=== PATIENT | male | born 1990 | race Caucasian/White ===

== ENCOUNTER 2024-02-10 13:35 | Emergency (ER) | payer SELFPAY ==
--- NOTE | 2024-02-10 13:54 | ED_ITS ---
Discharge Plan Disposition Patient Disposition: Home, Self-Care Condition: Good Prescriptions Prescriptions: New cyclobenzaprine 10 mg Tablet 10 mg PO BID PRN (Reason: Muscle Spasm) Qty: 20 0RF methylprednisolone 4 mg Tablets,Dose Pack 4 mg PO DIRECTED 6 Days Qty: 21 0RF Rx Instructions: Take 1 pack as directed for 6 days Referrals Follow up/Referrals: Ramon Cornejo MD [Primary Care Provider] - See instructions Activity Restrictions/Add. Instructions Additional Instructions/Restrictions: Go home and rest. It would be best if you rested tomorrow too. No heavy lifting. No twisting. Take the oral medications as directed. The muscle relaxer (cyclobenzaprine--Flexeril) will make you drowsy, so don't drive or operate heavy machinery after taking it. Don't start the oral steroids (medrol dose pack) until tomorrow, since you had the shots in here today. Follow up with your regular doctor. GO TO THE ER FOR ANY WORSENING SYMPTOMS OR CONCERN, ESPECIALLY BOWEL OR BLADDER ISSUES, SADDLE AREA NUMBNESS, FEVER, ETC Clinical Impressions Clinical Impression: Thoracic back pain, Pulled muscle Discharge ED Provider: Javier Rush [facility] General Stated complaint: back pain Time Seen by Provider: 02/10/24 13:54 History of Present Illness Provider Complaint: He states that for the past 3 days he has had right sided upper back pain. His pain started after he moved some heavy furniture. He denies any shortness of breath or cough. Related Data Previous Rx's Medication Instructions Recorded cyclobenzaprine 10 mg tablet 10 mg PO BID PRN Muscle Spasm #20 02/10/24 tabs methylprednisolone 4 mg tablets in 4 mg PO DIRECTED 6 days #21 tabs 02/10/24 a dose pack Allergies Allergy/AdvReac Type Severity Reaction Status Date / Time azithromycin Allergy Verified 04/14/18 18:17 erythromycin base Allergy Verified 02/10/24 14:06 [facility] Disclaimer: The information contained in this section may have been updated after the patient was seen, as this information can be updated by other users. Medical History (Updated 02/10/24 @ 14:55 by Javier Rush APRN) Asthma Social History Smoking Status: Current every day smoker tobacco type: cigarettes alcohol intake: never current occupational status: employed Travel in the last 8 weeks: None ROS Obtained: Yes All systems reviewed & no additional complaints except as documented Constitutional Constitutional: Denies chills and Denies fever(s) Eyes Eyes: Denies eye discharge ENT Ears, Nose, Mouth, and Throat: Denies dizziness, Denies otalgia, Denies neck pain and Denies sore throat Cardiovascular Cardiovascular: Denies chest pain Respiratory Respiratory: Denies shortness of breath, Denies chest congestion, Denies cough, Denies stridor and Denies wheezing Gastrointestinal Gastrointestingal: Denies nausea or vomiting Musculoskeletal Musculoskeletal: Reports system reviewed and no additional complaints, except as documented, Reports as per HPI, Reports back pain and Denies neck pain Integumentary/Breasts Skin/Breast: Denies rash Neurologic Neurologic: Denies dizziness and Denies paresthesias Allergic/Immunologic Allergic/Immunologic: Denies wheezing Physical Exam General General appearance: alert and in no apparent distress Head Head exam: atraumatic, normocephalic and normal inspection Eye Eye exam: Present normal appearance, PERRL and EOMI ENT ENT exam: Present normal exam, normal oropharynx, mucous membranes moist, TM's normal bilaterally and normal external ear exam Neck Neck exam: Present normal inspection, full ROM and trachea midline; Absent meningismus or lymphadenopathy Chest Chest inspection: Present normal inspection and symmetric chest wall rise; Absent tenderness Respiratory Respiratory exam: Present normal lung sounds bilaterally; Absent respiratory distress Cardiovascular Cardiovascular exam: Present regular rate and normal rhythm; Absent JVD Abdominal Exam Abdominal exam: Present soft and normal bowel sounds; Absent distention, tenderness or guarding Extremities Exam Extremities exam: Present normal inspection, full ROM and normal capillary refill; Absent calf tenderness Back Exam Back exam: Present normal inspection; Absent tenderness Neurological Exam Neurological exam: Present alert, oriented X3, CN II-XII intact, normal gait and reflexes normal; Absent motor sensory deficit Expanded Neurological Exam Speech: Present fluid speech Cranial nerves: Normal: EOM function (II, III, IV, ), facial sensation (V), facial palsy (VII), gag reflex (IX), spinal accessory function (XI) and tongue deviation (XII) Cerebellar function: normal gait Motor strength - LUE: 5/5 Motor strength - RUE: 5/5 Motor strength - LLE: 5/5 Motor strength - RLE: 5/5 Upper motor neuron exam: Normal: shil[place] neglect and sensory extinction Sensory exam upper extremity: Normal: light touch and 2 point discrimination Sensory exam lower extremity: Normal: light touch and 2 point discrimination DTR: 2+: biceps (L), biceps (R), patellar (L), patellar (R), Achilles tendon (L) and Achilles tendon (R) Spinal cord function: Absent saddle anesthesia Psychiatric Psychiatric exam: Present normal affect and normal mood Skin Skin exam: Present warm, dry, intact and normal color Lymphatic Lymphatic Findings: no adenopathy Medical Decision Making Medical Records Medical records reviewed: No I reviewed the patient's medical records. Edd Inquiry Pt receiving controlled substance: No
[2024-02-10 14:04] VITALS: BP 124/67; PULSE 87; RESP 17; TEMP 36.7; O2SAT 97; BMI 27.3
[2024-02-10] MEDS: KETOROLAC 60MG/2ML VIAL 60 MG IM (14:37)
[2024-02-10] MEDS: DEXAMETHASONE 4MG/ML 1ML VIAL 8 MG IM (14:37)
[2024-02-10 14:50] VITALS: BP 124/67; PULSE 87; RESP 17; TEMP 36.7; O2SAT 97
== END 2024-02-10 14:58 | disposition home or self-care (01) ==
PROVIDERS: Emergency Provider Nurse Practitioner Family; PCP Family Medicine
DX: S29.012A Strain of muscle and tendon of back wall of thorax, initial encounter (principal); M54.6 Pain in thoracic spine; X50.0XXA Overexertion from strenuous movement or load, initial encounter; F17.210 Nicotine dependence, cigarettes, uncomplicated
CPT/HCPCS: 96372; 99204; 99212; 99214; G0463; J1100; J1885

== ENCOUNTER 2024-05-18 13:16 | Emergency (ER) | payer SELFPAY ==
--- NOTE | 2024-05-18 13:31 | XR_ITS ---
FINAL REPORT CLINICAL HISTORY: fall FINDINGS: Left hand Three views were obtained. There is a comminuted fracture at the base of the 5th metacarpal extending into the carpometacarpal joint. There is a tiny chip fracture along the medial margin of the hamate. There is mild deformity of the 4th distal phalanx tuft presumably related to old healed fracture. IMPRESSION: Fractures as above. Reviewed, Interpreted and Dictated by Ramon Romero MD Transcribed by Ashleigh Gil Authenticated and [facility]
--- NOTE | 2024-05-18 13:31 | XR_ITS ---
FINAL REPORT CLINICAL HISTORY: fall FINDINGS: Left wrist Three views were obtained. There is a comminuted fracture at the base of the 5th metacarpal extending into the carpometacarpal joint. There is a tiny chip fracture along the medial margin of the hamate. IMPRESSION: Fractures as above. Reviewed, Interpreted and Dictated by Ramon Romero MD Transcribed by Ashleigh Gil Authenticated and . [facility]
[2024-05-18 13:34] VITALS: BP 143/67; PULSE 87; RESP 20; TEMP 36.8; O2SAT 100; BMI 25.8
--- NOTE | 2024-05-18 13:50 | EXP.UTC ---
Discharge Plan Disposition Patient Disposition: Home, Self-Care Condition: Good Prescriptions Prescriptions: New ibuprofen [IBU] 800 mg tablet 800 mg PO Q8HP PRN (Reason: Moderate Pain) Qty: 30 0RF Referrals Follow up/Referrals: Ramon Cornejo MD [Primary Care Provider] - See instructions Carlton Sparrow DO [Staff Physician] - See instructions Activity Restrictions/Add. Instructions Additional Instructions/Restrictions: Rest the extremity, apply ice for 15 minutes as tolerated three or four times per day, Wear the sandra wrap for compression, Elevate the extremity as tolerated while you are resting. Take ibuprofen for pain. I sent in a prescription to your pharmacy. Follow up with Dr. Sparrow (orthopedics). I put in a referral but you need to call his office and schedule an appointment. His office phone number will be on this paperwork. Follow up with your regular doctor. GO TO THE ER FOR ANY WORSENING SYMPTOMS Clinical Impressions Clinical Impression: Fracture of fifth metacarpal bone of left hand Instructions Patient Instructions: DI for a Hand Fracture, Hand Fracture Print Language Print Language: Citizen Of [place] Discharge ED Provider: Javier Rush [facility] HPI General Stated complaint: AO 05/18/24 @ 12:00, fell, inj to left hand Mode of Arrival: Ambulatory Source of Information: Patient Time Seen by Provider: 05/18/24 13:50 Description of Symptoms (Recalled from Triage Doc. 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 Related Data Previous Rx's ?Medication ?Instructions ?Recorded ibuprofen 800 mg tablet (IBU) 800 mg PO Q8HP PRN Moderate Pain 05/18/24 #30 tabs Allergies Allergy/AdvReac Type Severity Reaction Status Date / Time azithromycin Allergy Verified 04/14/18 18:17 erythromycin base Allergy Verified 02/10/24 14:06 Worker's Comp Is this a Worker's Comp case?: No [facility] Disclaimer: The information contained in this section may have been updated after the patient was seen, as this information can be updated by other users. Medical History (Updated 05/18/24 @ 14:38 by Javier Rush APRN) Asthma Social History (Updated 02/11/24 @ 12:17 by Javier Rush APRN) Smoking Status: Current every day smoker tobacco type: cigarettes alcohol intake: never current occupational status: employed Travel in the last 8 weeks: None ROS Obtained: Yes All systems reviewed & no additional complaints except as documented Constitutional Constitutional: Denies chills and Denies fever(s) Eyes Eyes: Denies eye discharge ENT Ears, Nose, Mouth, and Throat: Denies dizziness, Denies otalgia and Denies sore throat Cardiovascular Cardiovascular: Denies chest pain Respiratory Respiratory: Denies shortness of breath, Denies chest congestion, Denies cough, Denies stridor and Denies wheezing Gastrointestinal Gastrointestingal: Denies nausea or vomiting Musculoskeletal Musculoskeletal: Reports as per HPI, Denies numbness and Denies tingling Integumentary/Breasts Skin/Breast: Denies redness, Denies rash and Denies wounds Neurologic Neurologic: Denies dizziness, Denies numbness, Denies paresthesias, Denies radicular pain and Denies tingling Allergic/Immunologic Allergic/Immunologic: Denies wheezing Physical Exam General General appearance: alert and in no apparent distress Head Head exam: atraumatic, normocephalic and normal inspection Eye Eye exam: Present normal appearance, PERRL and EOMI ENT ENT exam: Present normal exam, normal oropharynx, mucous membranes moist, TM's normal bilaterally and normal external ear exam Neck Neck exam: Present normal inspection, full ROM and trachea midline; Absent meningismus or lymphadenopathy Chest Chest inspection: Present normal inspection and symmetric chest wall rise; Absent tenderness Respiratory Respiratory exam: Present normal lung sounds bilaterally; Absent respiratory distress Cardiovascular Cardiovascular exam: Present regular rate and normal rhythm; Absent JVD Abdominal Exam Abdominal exam: Present soft and normal bowel sounds; Absent distention, tenderness or guarding Extremities Exam Extremities exam: Present normal capillary refill; Absent calf tenderness Expanded Upper Extremity Exam Left: Elbow exam: Present normal inspection and full ROM; Absent tenderness, pain w/ pronation/supination or tenderness over radial head Forearm/Wrist exam: Present normal inspection and full ROM; Absent tenderness, swelling, abrasion, laceration, ecchymosis, deformity, crepitus, dislocation, erythema, tenderness over anatomical snuff box or pain with axial thumb loading Hand exam: Present tenderness and swelling; Absent full ROM, abrasion, laceration, skin avulsion, ecchymosis, deformity, crepitus, dislocation, erythema, amputation, nail avulsion or subungual hematoma Neuromotor exam: Normal wrist extension, thumb opposition, thumb IP flexion, thumb adduction and fingers 2-5 abduction Neurosensory exam: Normal radial nerve, ulnar nerve and median nerve Vascular exam: Normal capillary refill, radial pulse and ulnar pulse Back Exam Back exam: Present normal inspection; Absent tenderness Neurological Exam Neurological exam: Present alert and oriented X3 Psychiatric Psychiatric exam: Present normal affect and normal mood Skin Skin exam: Present warm, dry, intact and normal color Lymphatic Lymphatic Findings: no adenopathy Medical Decision Making Medical Records Medical records reviewed: No I reviewed the patient's medical records. Screening: Per USPSTF and CDC recommendations, given the prevalence of disease in our region, it is our hospital?s policy to screen for HIV and viral Hepatitis for all patients aged 18 and over and those with ongoing risk factors. Edd Inquiry Pt receiving controlled substance: No Vital Signs: 05/18/24 13:34 Temperature 98.3 F Temperature Source Oral Pulse Rate [Left Radial] 87 Respiratory Rate 20 Blood Pressure [Left Arm] 143/67 H Blood Pressure Mean [Left Arm] 92 02 Sat by Pulse Oximetry 100 Orders (Tests/Meds): ORDERS Category Date Time Status Wrist XR left minimum 3 views [XR wrist LT min 3V] Stat Exams 05/18/24 13:31 Taken XR hand LT min 3V Stat Exams 05/18/24 13:31 Taken Radiology Data #1: Image(s): Hand Image Reviewed: Yes I reviewed the patient's radiology image and Yes I have reviewed radiologist's interpretation Preliminary Findings: Abnormal Accession No. : [id number] Patient Name / ID : HARDEEP CARMEN / [id number] Exam Date : 05/18/2024 13:27:30 ( Final ) Study Comment : Sex / Age : M / 34Y Creator : Rick Romero MD Dictator : Service Delivery Consultant : Mortgage Loan Assistant : Rick Romero MD Approver2 : Report Date : 05/18/2024 14:33:40 My Comment : FINAL REPORT CLINICAL HISTORY: fall FINDINGS: Left hand Three views were obtained. There is a comminuted fracture at the base of the 5th metacarpal extending into the carpometacarpal joint. There is a tiny chip fracture along the medial margin of the hamate. There is mild deformity of the 4th distal phalanx tuft presumably related to old healed fracture. IMPRESSION: Fractures as above. Reviewed, Interpreted and Dictated by Ramon Romero MD Transcribed by Ashleigh Gil Authenticated and [facility] Procedures Risk/Benefits of Procedure(s) Were Explained: Yes Orthopedic Splinting/Casting Injury #1: Side: left Upper Extremity Injury Location: forearm, wrist and hand Upper Extremity Immobilizer: ulnar gutter and applied by nurse/dr ordoñez Post Cast/Splinting Neuro Status: intact and no change Post Cast/Splinting Vasc Status: intact and no change
[2024-05-18 14:45] VITALS: BP 143/67; PULSE 87; RESP 20; TEMP 36.8
== END 2024-05-18 14:47 | disposition home or self-care (01) ==
PROVIDERS: Emergency Provider Nurse Practitioner Family; PCP Family Medicine
DX: S62.317A Displaced fracture of base of fifth metacarpal bone, left hand, initial encounter for closed fracture (principal); W19.XXXA Unspecified fall, initial encounter
CPT/HCPCS: 73110; 73130; 99212; 99214; G0463

== ENCOUNTER 2024-06-16 09:30 | Outpatient (CLI) | payer SELFPAY ==
--- NOTE | 2024-06-16 09:35 | XR_ITS ---
PROCEDURE INFORMATION: Exam: XR Left Hand Exam date and time: 06/16/2024 9:42 AM Age: 34 years old Clinical indication: Pain; Hand; Left; Additional info: Left hand FX TECHNIQUE: Imaging protocol: Radiologic exam of the left hand. Views: 3 or more views. COMPARISON: CR XR HAND LT MIN 3V 05/18/2024 1:27 PM FINDINGS: Limitations: Fine bony detail is obscured by overlying fiberglass cast. Bones/joints: Redemonstration of mildly comminuted fracture base of the 5th metacarpal likely involving the articular margin. Persistent deformity distal tuft 4th phalanx unchanged that may be secondary to old fracture and should be correlated with history. Remainder of visualized osseous structures are unremarkable. Soft tissues: Unremarkable. IMPRESSION: 1. Stable appearance of mildly comminuted fracture base of the 5th metacarpal. 2. Stable deformity distal tuft 4th phalanx
--- NOTE | 2024-06-16 09:35 | XR_ITS ---
PROCEDURE INFORMATION: Exam: XR Left Wrist Exam date and time: 06/16/2024 9:42 AM Age: 34 years old Clinical indication: Pain; Wrist; Left; Additional info: Left wrist FX TECHNIQUE: Imaging protocol: Radiologic exam of the left wrist. Views: 3 or more views. COMPARISON: CR XR WRIST LT MIN 3V 06/16/2024 9:42 AM FINDINGS: Limitations: Fine bony detail is obscured by overlying fiberglass cast. Bones/joints: Redemonstration of mildly comminuted fracture involving the base of the 5th metacarpal unchanged. No other fractures are appreciated. Mild degenerative change involving the radioulnar joint and 1st carpometacarpal joint. Soft tissues: Unremarkable. IMPRESSION: Mildly comminuted fracture base of the 5th metacarpal unchanged.
== END 2024-06-16 23:59 | disposition home or self-care (01) ==
LOC: RAD 09:31
PROVIDERS: PCP Family Medicine; Visit Provider Physician Assistant
DX: M25.532 Pain in left wrist (principal); S62.307A Unspecified fracture of fifth metacarpal bone, left hand, initial encounter for closed fracture
CPT/HCPCS: 73110; 73130

== ENCOUNTER 2024-07-14 10:33 | Outpatient (CLI) | payer SELFPAY ==
--- NOTE | 2024-07-14 10:36 | XR_ITS ---
FINAL REPORT CLINICAL HISTORY: left 5th metacarpal fx COMPARISON: 05/18/2024 FINDINGS: LEFT WRIST Three views demonstrate the carpal bones are intact. There is no significant positive or negative ulnar variance. Again seen is a comminuted nondisplaced fracture of the base of the 5th metacarpal. The fracture fragments are unchanged in position. There is now a small amount of bridging callus formation. The soft tissues are unremarkable. IMPRESSION: Fifth metacarpal fracture with evidence of interval healing. Reviewed, Interpreted and Dictated by Fabian Joseph MD Transcribed by Shefali Nash Authenticated and [facility]
== END 2024-07-14 23:59 | disposition home or self-care (01) ==
LOC: RAD 10:34
PROVIDERS: PCP Family Medicine; Visit Provider Physician Assistant Surgical
DX: S62.307A Unspecified fracture of fifth metacarpal bone, left hand, initial encounter for closed fracture (principal)
CPT/HCPCS: 73110